=== PATIENT | female | born 1985 | race Native Hawaiian/Other Pacific Islander ===

== ENCOUNTER 2017-06-09 06:21 | Inpatient (IN) | payer OTHER ==
[2017-06-09 06:47] VITALS: BMI 27.8
[2017-06-09] MEDS ORDERED: Oxytocin 30 UNIT 30 UNITS/500 ML BAG IV PRN (06:48)
--- NOTE | 2017-06-09 06:59 | OBADHP ---
Datetime: 06/09/2017 06:49 Admit Comment, IP Provider: at 40=weeks came with ctxs strted at 3 am with vginal spotting x 2, no lof,+fm obhx 1 x pmh de med pnv all nkda psh den soch den ve /-2 a/p at 40=weeks in labor admit to l_d npo/ivf labscont tamela and efm pain management anticipate Pelvic Type - PN: Adequate Extremities - PN: Normal Abdomen - PN: Normal Back - PN: Normal Breast - PN: Normal Lungs - PN: Normal Heart - PN: Normal Thyroid - PN: Normal Neurologic - PN: Normal HEENT - PN: Normal General - PN: Normal FHR - Baseline A Provider: 130 Membranes, Provider: Bulging Contraction Comments Provider: irrg Comments, ACOG Physical Exam: gravid,non tender ext no edema,no calf IP Hx Assessment: The History has been Reviewed and is Current Vital Signs Provider: Reviewed; Within Normal Limits IP Chief Complaint: Uterine contractions; Vaginal bleeding NICHD Variability Prov Fetus A: Moderate 6-25bpm NICHD Accel Fetus A IP Provider: 15X15 FHR Category Provider Fetus A: Category I NICHD Decel Fetus A IP Provider: None Dilatation, Provider: 4 Effacement, Provider: 80 Station, Provider: -2 Genitourinary Exam: Normal DTRs - PN: Normal IP Adm Impression: Term, intrauterine ; Active labor; Intact Membranes IP Admit Plan: Admit to unit; Initiate labor protocol
[2017-06-09] MEDS ORDERED: Lactated Ringer's 1,000 ML IV SCH (07:00)
[2017-06-09 07:21] LABS: BASO % 0.2 % (0.0-2.0); EOS # 0.1 K/uL (0.0-0.7); EOS % 0.5 % (0.0-4.0); HEMATOCRIT 38.5 % (34.0-47.0); LYMPH # 1.6 K/uL (1.0-4.3); LYMPH % 13.8 % (20.0-40.0); MEAN CORPUSCULAR HEMOGLOBIN 30.1 pg (27.0-31.0); MEAN CORPUSCULAR HGB CONC 33.9 g/dL (33.0-37.0); MONO # 0.9 K/uL (0.0-0.8); MONO % 7.6 % (0.0-10.0); RED CELL DISTRIBUTION WIDTH 13.7 % (11.5-14.5); WHITE BLOOD COUNT 11.7 K/uL (4.8-10.8)
[2017-06-09 07:22] LABS: MEAN CELL VOLUME 88.7 fL (81.0-99.0)
[2017-06-09 07:25] LABS: URINE BILIRUBIN NEGATIVE (NEGATIVE); URINE BLOOD 2+ (NEGATIVE); URINE COLOR Straw (YELLOW); URINE GLUCOSE (UA) NORMAL (Normal); URINE KETONE NEGATIVE (NEGATIVE); URINE LEUKOCYTE ESTERASE NEG Leu/uL (Negative); URINE PROTEIN NEGATIVE (NEGATIVE); URINE UROBILINOGEN NORMAL mg/dL (0.2-1.0); WBC URINE < 1 /hpf (0-5)
[2017-06-09 07:35] LABS: CHLORIDE 102 mmol/L (98-107); POTASSIUM 3.8 mmol/L (3.6-5.2); SODIUM 135 mmol/L (132-148)
[2017-06-09 07:37] LABS: ALB/GLOB RATIO 1.1 (1.0-2.1); ALKALINE PHOSPHATASE 169 U/L (38-126); AST/SGOT 22 U/L (14-36); BILIRUBIN,TOTAL 0.5 mg/dL (0.2-1.3); CARBON DIOXIDE 20 mmol/L (22-30); GFR AFRICAN-AMERICAN > 60; TOTAL PROTEIN 6.7 g/dL (6.3-8.3)
[2017-06-09 07:38] LABS: ALT/SGPT 27 U/L (9-52); BLOOD UREA NITROGEN 9 mg/dL (7-17); CALCIUM 9.5 mg/dl (8.6-10.4); GLUCOSE,RANDOM 89 mg/dL (65-105)
[2017-06-09 07:45] LABS: RBC URINE 3 /hpf (0-3)
--- NOTE | 2017-06-09 07:53 | OBPN ---
Datetime: 06/09/2017 07:50 IP Progress Impression: Normal progression of labor IP Procedures: Sterile Vag Exam IP Progress Plan: Augmentation FHR - Baseline A Provider: 130 IP Progress Note Comment: pt was examined at bed side ve 4/80/-2 arom mec start pitocin anticipate Vital Signs Provider: Reviewed; Within Normal Limits NICHD Accel Fetus A IP Provider: 15X15 FHR Category Provider Fetus A: Category I NICHD Variability Prov Fetus A: Moderate 6-25bpm Dilatation, Provider: 4 Effacement, Provider: 80 Station, Provider: -2 Datetime: 06/09/2017 06:49 Membranes, Provider: Bulging Contraction Comments Provider: irrg NICHD Decel Fetus A IP Provider: None
[2017-06-09] MEDS ORDERED: Oxytocin 30 UNIT 30 UNITS/500 ML BAG IV ONE (07:54)
[2017-06-09] MEDS ORDERED: Lidocaine 2% Inj (20ml) ONE (08:41)
--- NOTE | 2017-06-09 10:22 | OBPN ---
Datetime: 06/09/2017 10:20 IP Progress Impression: Normal progression of labor IP Procedures: Sterile Vag Exam IP Progress Plan: Continue present management FHR - Baseline A Provider: 130 IP Progress Note Comment: pt was examined at bed side ve 8/100/-1 cont pitocin anticipate Vital Signs Provider: Reviewed; Within Normal Limits NICHD Accel Fetus A IP Provider: 15X15 FHR Category Provider Fetus A: Category I NICHD Variability Prov Fetus A: Moderate 6-25bpm Dilatation, Provider: 8 Effacement, Provider: 100 Station, Provider: -2
[2017-06-09] MEDS ORDERED: Oxycodone/Acetaminophen 5/325 mg Tab PO PRN (10:27)
[2017-06-09] MEDS ORDERED: Oxytocin 30 UNIT 30 UNITS/500 ML BAG IV SCH (10:30)
--- NOTE | 2017-06-09 11:10 | OBDS ---
MATERNAL INFORMATION Estimated Blood Loss (ml): 300 Provider Comments: baby deliverd in orlin. end clean no com peads present at delivery 9/9 LABOR SUMMARY EDC: 06/08/2017 00:00 LABOR INFORMATION Onset of Labor: 06/09/2017 03:30 Group B Beta Strep: Negative MEMBRANES Membranes Rupture Method: Artificial Amniotic Fluid Color: Light Meconium Amniotic Fluid Amount: Small Amniotic Fluid Odor: Normal VAGINAL DELIVERY Episiotomy: None Laceration Extension: N/A Laceration Type: None BABY A INFORMATION Infant Delivery Date/Time: 06/09/2017 10:59 Method of Delivery: Vaginal Born in Route : No Forceps: N/A Vacuum Extraction: N/A SHOULDER DYSTOCIA BABY A Infant Delivery Date/Time: 06/09/2017 10:59 PRESENTATION/POSITION BABY A Presentation: Cephalic Cephalic Presentation: Vertex Vertex Position: Left Occipital Anterior Breech Presentation: N/A PLACENTA INFORMATION BABY A Placenta Method of Delivery: Spontaneous Placenta Status: Delivered INFANT INFORMATION BABY A Infant Sex: Female IDENTIFICATION/MEDS BABY A ID Band Number: [id number] Sensor Number: [id number]
[2017-06-10 07:52] LABS: HEMATOCRIT 33.8 % (34.0-47.0); MEAN CELL VOLUME 89.2 fL (81.0-99.0); MEAN CORPUSCULAR HEMOGLOBIN 30.3 pg (27.0-31.0); MEAN PLATELET VOLUME 7.2 fL (7.2-11.7); RED CELL DISTRIBUTION WIDTH 14.2 % (11.5-14.5); WHITE BLOOD COUNT 13.6 K/uL (4.8-10.8)
[2017-06-10 16:34] VITALS: O2SAT 98
--- NOTE | 2017-06-10 23:55 | OBPPN ---
Datetime: 06/10/2017 23:46 PP Pain Prov: Within normal limits PP Nausea Prov: Denies PP Flatus Prov: Yes PP BM Prov: Yes PP Breasts Prov: Normal PP Heart Prov: Normal PP Lungs Prov: Normal PP Abdomen/Uterus Prov: Normal PP Lochia Prov: Normal PP Vulva/Perineum Prov: Normal PP CVA Tenderness Prov: Normal PP Extremities Prov: Normal PP C/S Incision Prov: Not Applicable PP Progress Prov: Normal PP Comments Phys Exam Prov: Abdomen: Soft, non distended. Fundus firm, mobile, non tender, 1 FB belo w umblicus. All other systems reviewed and are negative PP Impression Prov: Normal progression PP Plan Prov: Continue present management PP Progress Note Prov: Patient seen and evaluated earlier this morning; received sitting on bed in r oom 451. primarily; occ bottle. Denies nausea, vomiting. (+) flatus; (-) BM P.E.: as above. Mildly obese in NAD. Awake, alert, oriented to time, person and place. Pleasant a nd cooperative - PPD#1 H/H 11.5/33.8 Assessment: PPD#1, 31 y.o. P2, S/P . Afebrile, vital signs stable. Clincally stable Plan: 1) continue present managemet 2) Anticipate discharge home 06/11/17 Vital Signs Provider PP: Reviewed
[2017-06-11 08:13] VITALS: BP 115/68; PULSE 70; RESP 18
--- NOTE | 2017-06-11 11:27 | OBPPN ---
Datetime: 06/11/2017 11:25 PP Pain Prov: Within normal limits PP Nausea Prov: Denies PP Flatus Prov: Yes PP BM Prov: Yes PP Breasts Prov: Normal PP Heart Prov: Normal PP Lungs Prov: Normal PP Abdomen/Uterus Prov: Normal PP Lochia Prov: Normal PP Vulva/Perineum Prov: Normal PP CVA Tenderness Prov: Normal PP Extremities Prov: Normal PP C/S Incision Prov: Not Applicable PP Progress Prov: Normal PP Impression Prov: Normal progression PP Plan Prov: Discharge PP Progress Note Prov: pt seen and examiend and reports pian is controlled with medicatoin. pt is am bauting out of bed, voiding, passing flatus, bresat feeding, denies any lighthtenadd, dizzyness, CP, SOB. VSS PE see above GEN NAD AANo x 3 REP: CTAB/l CVS: RRR, +S1/S2 BREAST Non tender, non enrogrbe b/l ABD: soft, NT/ND, +BS, no guaridng, no reboudn tendneres,s no rigidity FUndus; Firm, below level of umbilucs V:E miniml lochai non foul slemming EX:T no calf tendnress b/l, negative homans sign A/P s/p PPD #2 doing well, requestind d/c d/c home f/u clinic 6 weeks precautisn given IP PP Procedures: None Vital Signs Provider PP: Reviewed; Within Normal Limits
--- NOTE | 2017-06-11 11:30 | OBDCSUM ---
Datetime: 06/11/2017 11:26 Discharged to, Provider: Home Follow up at, Provider: clinic Disch Instr Activity: Normal activity Disch Instr Diet: Regular Discharge Instructions, Provider: Routine instructions given Discharge Diagnosis, Provider: Term Delivered Discharge Time: 06/11/2017 11:26 Follow up in weeks, Provider: 6 weeks Disch Referrals: None Contraception discussed, Prov: Yes Disch Activity Restrictions: No sexual activity Discharge Comment, Provider: no sex, no douchign no tampons x 6 week if fever, chlils, nause, vomiting, cp, sob, heavy bleeding, dizzynes, lighthteadness go to ER Contraception after Delivery: Not Planning to Use
[2017-06-11 21:45] VITALS: TEMP 98
== END 2017-06-11 14:20 | disposition home or self-care (01) | DRG 373 ==
LOC: C.EROB 06:21 → C.4D 06:46 → C.4M 12:58
PROVIDERS: ADMIT Obstetrics & Gynecology; ATTEND Obstetrics & Gynecology
PROC: 10E0XZZ Delivery of Products of Conception, External Approach (ICD-10-PCS; principal; 2017-06-09)
DX: O48.0 Post-term pregnancy (principal); E66.9 Obesity, unspecified; O99.214 Obesity complicating childbirth; Z3A.40 40 weeks gestation of pregnancy; Z68.27 Body mass index [BMI] 27.0-27.9, adult; Z37.0 Single live birth